=== PATIENT | female | born 1995 | race Caucasian/White ===

== ENCOUNTER 2023-12-24 16:55 | Emergency (ER) | payer OTHER ==
[~2023-12-24] VITALS: Ht 162.6 cm; Wt 55.3 kg
[~2023-12-24 16:55] MED LIST: QUET50TA PO
[2023-12-24 18:14] LABS: BASOPHILS % (AUTO) 0.6 % (0.0-2.0); EOSINOPHILS % (AUTO) 0.6 % (0.0-6.0); HEMATOCRIT 41 % (33-45); HEMOGLOBIN 13.4 g/dL (11.5-14.8); LYMPHOCYTES # (AUTO) 1.7 K/uL (0.8-4.8); LYMPHOCYTES % (AUTO) 22.7 % (20.0-44.0); MEAN CORPUSCULAR HEMOGLOBIN 29 PG (26.0-33.0); MEAN CORPUSCULAR HGB CONC 32 g/dl (31.0-36.0); MEAN CORPUSCULAR VOLUME 91 fL (82-100); MONOCYTES # (AUTO) 0.4 K/uL (0.1-1.30); MONOCYTES % (AUTO) 5.5 % (2.0-12.0); NEUTROPHILS # (AUTO) 5.3 K/uL (1.8-8.9); NEUTROPHILS % (AUTO) 70.6 % (43.0-81.0); PLATELET COUNT (AUTO) 296 K/uL (150-450); RED BLOOD CELL COUNT(AUTO) 4.56 MIL/uL (4.0-5.2); RED CELL DISTRIBUTION WIDTH 12.8 % (11.5-15.0); WHITE BLOOD COUNT (AUTO) 7.6 K/uL (4.3-11.0)
[2023-12-24 18:29] LABS: ALANINE AMINOTRANSFERASE 10 U/L (12-78); ALBUMIN 3.8 g/dL (3.4-5.0); ALCOHOL, BLOOD < 3 mg/dL (0-10); ALKALINE PHOSPHATASE 76 U/L (46-116); ASPARTATE AMINOTRANSFERASE 15 U/L (15-37); BILIRUBIN,DIRECT 0.2 mg/dL (0.0-0.2); BILIRUBIN,TOTAL 0.6 mg/dL (0.2-1.0); CARBON DIOXIDE 26 mmol/L (21-32); CHLORIDE 103 mmol/L (98-107); CREATININE 0.8 mg/dL (0.6-1.3); GLUCOSE 78 mg/dL (74-106); POTASSIUM 3.8 mmol/L (3.5-5.1); SODIUM SERUM 137 mmol/L (136-145); TOTAL PROTEIN, SERUM 8.1 g/dL (6.4-8.2); UREA NITROGEN, BLOOD 15 mg/dL (7-18)
[2023-12-24 18:31] LABS: ACETAMINOPHEN 0 ug/ml (10-30)
[2023-12-24 18:55] LABS: AMPHETAMINE, URINE POSITIVE (NEGATIVE); BARBITURATE, URINE NEGATIVE (NEGATIVE); BENZODIAZEPINE, URINE NEGATIVE (NEGATIVE); CANNABINOID, URINE POSITIVE (NEGATIVE); COCCAINE, URINE NEGATIVE (NEGATIVE); OPIATE, URINE NEGATIVE (NEGATIVE); PHENCYCLIDINE SCREEN,URINE NEGATIVE (NEGATIVE)
[2023-12-24 19:05] LABS: APPEARANCE,URINE TURBID (CLEAR); BILIRUBIN,URINE 1+ (NEGATIVE); BLOOD, URINE NEGATIVE Ery/uL (NEGATIVE); COLOR,URINE DARK YELLOW (YELLOW); KETONES,URINE 1+ mg/dL (NEGATIVE); LEUKOCYTE ESTERASE ,URINE 1+ (NEGATIVE); NITRITE, URINE POSITIVE (NEGATIVE); PROTEIN,URINE 2+ mg/dl (NEGATIVE); UGLUCOSE NEGATIVE (NEGATIVE)
[2023-12-24 19:28] LABS: ADD URINE CULTURE YES; BACTERIA,URINE 2+ /HPF (None Seen); CALCIUM OXALATE CRYSTALS,UR Rare /HPF (None Seen); URINE AMORPHOUS URATE Few /HPF (None Seen)
[2023-12-24 21:32] LABS: PREGNANCY TEST URINE QUAL NEGATIVE (NEGATIVE)
[2023-12-25] MEDS ORDERED: NITR100C6 PO (00:11)
[2023-12-25] MEDS ORDERED: CEFTRIAXONE 1GM BAG (ER ONLY) 50 ML IV ONE (00:12)
[2023-12-25] MEDS: CEFTRIAXONE 1 G in IV D5W 50 ML IV ONE (00:13)
[2023-12-25 00:37] VITALS: BP 131/82; TEMP 98.2; O2SAT 98
== END 2023-12-25 00:38 | disposition home or self-care (01) ==
LOC: ER 17:23
DX: R45.851 Suicidal ideations (principal); N39.0 Urinary tract infection, site not specified; F12.10 Cannabis abuse, uncomplicated; J45.909 Unspecified asthma, uncomplicated; F41.9 Anxiety disorder, unspecified; F31.9 Bipolar disorder, unspecified; Z88.8 Allergy status to other drugs, medicaments and biological substances; F17.200 Nicotine dependence, unspecified, uncomplicated; Z20.822 Contact with and (suspected) exposure to COVID-19
CPT/HCPCS: 99285; 85025; 80048; 87086; 80076; 84703; 81001; 36415; 87426; 80143; 80320; 80307; 96365; J0696; G0480

== ENCOUNTER 2024-08-28 19:21 | Emergency (ER) | payer OTHER ==
[~2024-08-28] VITALS: Ht 167.6 cm; Wt 54.4 kg
[~2024-08-28 19:21] MED LIST changes: +NITR100C6 PO
[2024-08-28 19:58] VITALS: BP 130/83; TEMP 97.9; O2SAT 100
[2024-08-28] MEDS ORDERED: CIPR7.5D9 EACH EAR (20:25)
[2024-08-28] MEDS ORDERED: IBUP-1490 PO (20:25)
[2024-08-28] MEDS ORDERED: FLUT16SP16 BNOSTRILS (20:25)
[2024-08-28] MEDS ORDERED: IBUPROFEN 600 MG TABLET ONE (20:31)
[2024-08-28] MEDS ORDERED: ACETAMINOPHEN ES 500 MG TABLET ONE (20:31)
[2024-08-28] MEDS: IBUPROFEN 600 MG TABLET PO ONE (20:32)
[2024-08-28] MEDS: ACETAMINOPHEN ES 500 MG TABLET PO ONE (20:32)
== END 2024-08-28 20:35 | disposition home or self-care (01) ==
LOC: ER 19:24
DX: K08.89 Other specified disorders of teeth and supporting structures (principal); J45.909 Unspecified asthma, uncomplicated; F31.9 Bipolar disorder, unspecified; F17.200 Nicotine dependence, unspecified, uncomplicated; H60.91 Unspecified otitis externa, right ear; G43.909 Migraine, unspecified, not intractable, without status migrainosus; Z88.1 Allergy status to other antibiotic agents; Z88.8 Allergy status to other drugs, medicaments and biological substances